=== PATIENT | female | born 1945 | race Caucasian/White ===

== ENCOUNTER 2019-08-06 06:03 | Inpatient (IN) | payer BC ==
[~2019-08-06] VITALS: Ht 160 cm; Wt 60.8 kg
[~2019-08-06 06:03] MED LIST: APIX5TAB4 PO; DITXL5 PO; DIVA250T PO; FEM2.5 PO; OMEP20CA11 PO
[2019-08-06] MEDS ORDERED: CEFAZOLIN SOD 1 GM in D5W 50 ML IV ONE (07:00)
[2019-08-06] MEDS ORDERED: POLYMYXIN 500,000/BACIT.10,000 UNITS in NS IRR 1 L IR ONE (07:34)
[2019-08-06] MEDS ORDERED: BUPIVACAINE LIPOSOME/PF 266 MG/20 ML VIAL INFIL ONE (08:51)
[2019-08-06] MEDS ORDERED: LR 1,000 ML IV SCH (09:01)
[2019-08-06] MEDS ORDERED: METOCLOPRAMIDE HCL 10 MG/2 ML VIAL IVP PRN (09:15)
[2019-08-06] MEDS ORDERED: MORPHINE 4 MG/ML INJ. SYRINGE IVP PRN ×3 (09:15)
[2019-08-06] MEDS ORDERED: ACETAMINOPHEN 325 MG TABLET PO PRN (09:30)
[2019-08-06] MEDS ORDERED: ONDANSETRON HCL 4 MG/2 ML VIAL IVP PRN (09:30)
[2019-08-06] MEDS ORDERED: HYDROcodone/ACETAMIN 5-325 MG TAB (NORCO/ VICODIN) PO PRN ×2 (09:30)
[2019-08-06] MEDS ORDERED: SEVOFLURANE 15 MIN GAS INH ONE (09:40)
[2019-08-06] MEDS ORDERED: PHENYLEPHRINE HCL 10 MG/ML VIAL (NEOSYNEPHRINE) ONE (09:40)
[2019-08-06] MEDS ORDERED: ROCURONIUM BROMIDE 10 MG/ML (ZEMURON) ONE (09:40)
[2019-08-06] MEDS ORDERED: GLYCOPYRROLATE 0.2 MG/ML VIAL ONE (09:40)
[2019-08-06] MEDS ORDERED: HEPARIN SODIUM,PORCINE 5000 UNITS/ML VIAL ONE (09:40)
[2019-08-06] MEDS ORDERED: fentaNYL CITRATE 250 MCG/5 ML AMP ONE (09:40)
[2019-08-06] MEDS ORDERED: NEOSTIGMINE METHYLSULFATE 1 MG/ML, 10 ML VIAL ONE (09:40)
[2019-08-06] MEDS ORDERED: ONDANSETRON HCL 4 MG/2 ML VIAL ONE (09:40)
[2019-08-06] MEDS ORDERED: BUPIVACAINE /PF 0.25% 30 ML VIAL INJ ONE (09:40)
[2019-08-06] MEDS ORDERED: LR 1,000 ML IV.SOLN IV ONE (09:40)
[2019-08-06] MEDS: MORPHINE 4 MG/ML INJ. SYRINGE ONE ×3 (10:10→11:20)
[2019-08-06 11:30] VITALS: BP_SYST 160
[2019-08-06] MEDS: HYDROmorphone 1 MG INJ. 1 MG/ML AMPUL IVP PRN ×2 (12:57→17:41)
[2019-08-06] MEDS: D5/0.45 NS 1,000 ML IV SCH (15:33)
[2019-08-06] MEDS: CEFAZOLIN 1 GM IVPB PREMIX 50 ML IV SCH ×2 (15:34→22:46)
[2019-08-06 16:00] VITALS: BP_SYST 167
[2019-08-06 17:06] VITALS: BP_SYST 153
[2019-08-06 21:53] VITALS: BP_SYST 138
[2019-08-06] MEDS: FAMOTIDINE PF 20 MG/2 ML VIAL IVP SCH (22:45)
[2019-08-07] VITALS (7 sets, daily range): BP systolic 110–148
[2019-08-07] MEDS: D5/0.45 NS 1,000 ML IV SCH ×3 (03:46→15:28)
[2019-08-07] MEDS: HYDROmorphone 1 MG INJ. 1 MG/ML AMPUL IVP PRN ×2 (05:29→10:38)
[2019-08-07] MEDS: FAMOTIDINE PF 20 MG/2 ML VIAL IVP SCH (08:36)
[2019-08-07] MEDS ORDERED: ENOXAPARIN SODIUM 30 MG/0.3 ML SYRINGE SUBCUT SCH (09:00)
== END 2019-08-07 20:27 | disposition home or self-care (01) | DRG 355 ==
LOC: SMU 06:03 → EDSTATUS 07:30 → SMU 12:29
PROVIDERS: ADMIT Colon & Rectal Surgery; ATTEND Colon & Rectal Surgery
PROC: 0WUF0JZ Supplement Abdominal Wall with Synthetic Substitute, Open Approach (ICD-10-PCS; principal; 2019-08-06 08:05)
DX: K43.0 Incisional hernia with obstruction, without gangrene (principal); K66.0 Peritoneal adhesions (postprocedural) (postinfection); Z79.899 Other long term (current) drug therapy
CPT/HCPCS: 87081; 88302; 94010; C1781; C9290; J0690; J1170; J1644; J1650; J2270; J2370; J2405; J2710; J3010; J3490; J7060; J7120